=== PATIENT | male | born 1990 | race American Indian/Alaskan Native ===

== ENCOUNTER 2016-11-22 22:54 | Inpatient (IN) | payer MEDICAID, OTHER ==
[2016-11-22] MEDS ORDERED: Sodium Chloride 0.9% 1,000 ML IV STA (23:27)
[2016-11-22] MEDS ORDERED: Insulin Regular 100 units/ml SC STA (23:27)
--- NOTE | 2016-11-22 23:47 | ED PDOC ---
Hyperglycemia/Hypoglycemia Time Seen by Provider: 11/22/16 23:16 Chief Complaint (Nursing): High Blood Sugar Chief Complaint (Provider): leg cramps History Per: Patient : The patient does not have any of the infectious symptoms listed except for those marked. Additional Complaint(s): pt w/ hx uncontrolled NIDDM c/o intermittant leg cramps for several weeks. 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 states he has not taken his insulin in one month since he ran out. denies dizziness, cp, sob, palp, abd pain, n/v, numbness, weakness to extremities. Past Medical History Reviewed: Historical Data, Nursing Documentation, Vital Signs Vital Signs: Last Vital Signs Temp 98 F 11/22/16 23:03 Pulse 90 11/22/16 23:03 Resp 18 11/22/16 23:03 BP 163/100 H 11/22/16 23:03 Pulse Ox 100 11/22/16 23:03 - Medical History PMH: Asthma, Diabetes (insulin dependent, type 2), HTN, Migraine Denies: Chronic Kidney Disease - Surgical History Surgical History: Appendectomy - Family History Family History: States: Hypertension (Mother) - Social History Current smoker - smoking cessation education provided: No Alcohol: Social Drugs: Denies - Home Medications Home Medications: Ambulatory Orders Medication Instructions Recorded Albuterol 0.083% [Albuterol 0.083% 1 inh PO Q4 PRN 11/23/16 Inhal Catina (2.5 mg/3 ml) UD] Albuterol Sulfate [Proair Hfa] 2 inh PO HS 11/23/16 Insulin Aspart [Novolog FLEXPEN] 15 units SC DAILY 11/23/16 Insulin Glargine,Hum.rec.anlog 14 units SC HS 11/23/16 [Toujeo Solostar] Lisinopril [Zestril] 40 mg PO DAILY 11/23/16 - Allergies Allergies/Adverse Reactions: Allergies Allergy/AdvReac Type Severity Reaction Status Date / Time No Known Allergies Allergy Verified 07/29/16 17:58 Review of Systems ROS Statement: Except As Marked, All Systems Reviewed And Found Negative Musculoskeletal: Positive for: Leg Pain Physical Exam - Reviewed Nursing Documentation Reviewed: Yes Vital Signs Reviewed: Yes - Physical Exam Appears: Positive for: Well, Non-toxic, No Acute Distress Skin: Positive for: Normal Color, Warm, DRY ENT: Positive for: Other (mucous membranes dry) Neck: Positive for: Normal, Painless ROM Cardiovascular/Chest: Positive for: Regular Rate, Rhythm Respiratory: Positive for: CNT, Normal Breath Sounds Gastrointestinal/Abdominal: Positive for: Normal Exam, Bowel Sounds, Soft. Negative for: Tenderness Extremity: Positive for: Normal ROM. Negative for: Tenderness, Pedal Edema, Swelling Neurologic/Psych: Positive for: Alert, Oriented. Negative for: Motor/Sensory Deficits - Laboratory Results Result Diagrams: 11/22/16 23:40 11/22/16 23:40 - ECG O2 Sat by Pulse Oximetry: 100 Medical Decision Making Medical Decision Making: EKG nsr. labs reveal elevated BS and CK. BS normalizing with fluids. will admit for continued hydration and observation. hospitalist aware. Disposition - Clinical Impression Clinical Impression: Hyperglycemia, Rhabdomyolysis - Patient ED Disposition Is Patient to be Admitted: Yes - Disposition Referrals: Alexis Morris MD [Primary Care Provider] - Disposition Time: 01:59 Condition: STABLE - Pt Status Changed To: Hospital Disposition Of: Inpatient - Admit Certification Admit to Inpatient:: After my assessment, the patient will require hospitalization for at least two midnights. This is because of the severity of symptoms shown, intensity of services needed, and/or the medical risk in this patient being treated as an outpatient.
[2016-11-22 23:57] LABS: ALB/GLOB RATIO 1.5 (1.0-2.1); ALKALINE PHOSPHATASE 172 U/L (38-126); ALT/SGPT 52 U/L (21-72); AST/SGOT 58 U/L (17-59); BASO # 0.1 K/uL (0.0-0.2); BASO % 0.7 % (0.0-2.0); BILIRUBIN,TOTAL 0.7 mg/dl (0.2-1.3); BLOOD UREA NITROGEN 22 mg/dl (9-20); CALCIUM 9.7 mg/dL (8.4-10.2); CARBON DIOXIDE 22 mmol/L (22-30); CHLORIDE 100 mmol/L (98-107); EOS # 0.2 K/uL (0.0-0.7); EOS % 1.3 % (0.0-4.0); GFR AFRICAN-AMERICAN > 60; HEMATOCRIT 49.6 % (35.0-51.0); LYMPH # 2.7 K/uL (1.0-4.3); LYMPH % 20.4 % (20.0-40.0); MAGNESIUM 1.8 MG/DL (1.6-2.3); MEAN CELL VOLUME 80.3 fl (80.0-94.0); MEAN CORPUSCULAR HEMOGLOBIN 26.8 pg (27.0-31.0); MEAN CORPUSCULAR HGB CONC 33.3 g/dL (33.0-37.0); MEAN PLATELET VOLUME 10.8 fl (7.2-11.7); MONO # 0.9 K/uL (0.0-0.8); NEUT # 9.4 K/uL (1.8-7.0); NEUT % 70.6 % (50.0-75.0); NRBC % 0.1 % (0.0-0.0); PHOSPHOROUS 3.8 mg/dl (2.5-4.5); POTASSIUM 4.5 MMOL/L (3.6-5.0); RED CELL DISTRIBUTION WIDTH 12.9 % (11.5-14.5); SODIUM 135 mmol/l (132-148); TOTAL PROTEIN 8.1 G/DL (6.3-8.2); WHITE BLOOD COUNT 13.2 K/uL (4.8-10.8)
[2016-11-23 00:05] LABS: GLUCOSE,RANDOM 473 mg/dL (75-110)
[2016-11-23 00:20] LABS: VENOUS BLOOD GAS BASE EXCESS 0.4 mmol/L (0.0-2.0); VENOUS BLOOD GAS PCO2 55 mmHg (40-60); VENOUS BLOOD PH 7.31 (7.32-7.43)
[2016-11-23 00:32] LABS: RBC URINE 2 /hpf (0-3); URINE BILIRUBIN NEGATIVE (NEGATIVE); URINE BLOOD NEGATIVE (NEGATIVE); URINE COLOR STRAW (YELLOW); URINE GLUCOSE (UA) >=500 mg/dL (Normal); URINE KETONE TRACE mg/dL (NEGATIVE); URINE LEUKOCYTE ESTERASE NEG Leu/uL (Negative); URINE PROTEIN NEGATIVE (NEGATIVE); URINE UROBILINOGEN 0.2-1.0 mg/dL (0.2-1.0); WBC URINE < 1 /hpf (0-5)
--- NOTE | 2016-11-23 02:04 | CP.PCM.HP ---
History of Present Illness - History of Present Illness History of Present Illness: PCP: Alexis Morris Chief Complaint: Leg cramp and pain HPI: 25 years old male with hx of DM II insulin requiring, HTN and noncompliant with medication, comes with 5 days of Pains to both calf muscles. This began with cramping of both lower extremities from thighs down to ankles, followed by severe pain to both calf muscles with varying intensity, increasing with walking and not relieved with his home treatment. He also referred cramping at the right upper extremity. He has not taken his Insulin for one month. No fever , SOB, Chest Pain. Palpitations, No dysuria, diarrhea, vomiting nor coughing. No seizure nor hx of trauma. PMH: Asthma, DM II Insulin requiring, HTN, Migraine PSH: Appendectomy SH: Smokes Tobacco, occasional alcohol; Uses [employer]; Live with the family FH: Mother with HTN Allergies: NKDA Seasonal Allergies Medication: Lisinopril/ Toujeo( Insulin Glargine) Present on Admission - Present on Admission Any Indicators Present on Admission: Yes History of DVT/PE: No History of Uncontrolled Diabetes: Yes Urinary Catheter: No Decubitus Ulcer Present: No Review of Systems - Constitutional Constitutional: absent: Anorexia, Fever, Headache, Lethargy, Weakness - EENT Eyes: Requires Corrective Lenses. absent: Blurred Vision, Diplopia, Floaters, Sees Flashes Ears: absent: Decreased Hearing, Ear Discharge, Ear Pain, Tinnitus Nose/Mouth/Throat: absent: Epistaxis, Nasal Congestion, Nasal Discharge, Sinus Pain, Sinus Pressure - Cardiovascular Cardiovascular: absent: Chest Pain, Dyspnea, Edema - Respiratory Respiratory: absent: Cough, Dyspnea, Wheezing - Gastrointestinal Gastrointestinal: absent: Abdominal Pain, Constipation, Diarrhea, Nausea, Vomiting - Genitourinary Genitourinary: absent: Dysuria, Flank Pain, Hematuria, Freq UTI - Musculoskeletal Musculoskeletal: Muscle Cramps, Myalgias - Integumentary Integumentary: absent: Pruritus, Rash, Skin Ulcer, Sores, Striae, Swelling - Neurological Neurological: Paresthesias. absent: Confusion, Numbness, Focal Weakness, Headaches, Weakness Additional comments: Paresthesias of both lower extremities and the right upper extremity. - Psychiatric Psychiatric: absent: Anxiety, Depression, Panic Attacks - Endocrine Endocrine: Polydipsia, Polyuria. absent: Palpitations, Polyphagia - Hematologic/Lymphatic Hematologic: absent: Easy Bleeding, Easy Bruising Past Patient History - Past Medical History & Family History Past Medical History?: Yes - Past Social History Smoking Status: Light Smoker < 10 Cigarettes Daily Chewing Tobacco Use: No Cigar Use: No Alcohol: Social Drugs: Cannabis Home Situation {Lives}: With Family - CARDIAC Hx Hypertension: Yes - PULMONARY Hx Asthma: Yes - NEUROLOGICAL Hx Migraine: Yes - HEENT Hx HEENT Problems: No - RENAL Hx Chronic Kidney Disease: No - ENDOCRINE/METABOLIC Hx Diabetes Mellitus Type 2: Yes (non-compliant) - HEMATOLOGICAL/ONCOLOGICAL Hx Blood Disorders: No - INTEGUMENTARY Hx Dermatological Problems: No - MUSCULOSKELETAL/RHEUMATOLOGICAL Hx Musculoskeletal Disorders: No - GASTROINTESTINAL Hx Gastrointestinal Disorders: No - GENITOURINARY/GYNECOLOGICAL Hx Genitourinary Disorders: No - PSYCHIATRIC Hx Psychophysiologic Disorder: No Hx Substance Use: Yes (OCCASIONAL) - SURGICAL HISTORY Hx Appendectomy: Yes - ANESTHESIA Hx Anesthesia: Yes Hx Anesthesia Reactions: No Meds Allergies/Adverse Reactions: Allergies Allergy/AdvReac Type Severity Reaction Status Date / Time No Known Allergies Allergy Verified 07/29/16 17:58 Physical Exam - Constitutional Appears: No Acute Distress - Head Exam Head Exam: ATRAUMATIC, NORMAL INSPECTION, NORMOCEPHALIC - Eye Exam Eye Exam: EOMI, Normal appearance Pupil Exam: NORMAL ACCOMODATION, PERRL - ENT Exam ENT Exam: Mucous Membranes Moist, Normal Exam, Normal External Ear Exam, Normal Oropharynx - Neck Exam Neck exam: Positive for: Full Rom, Normal Inspection. Negative for: Lymphadenopathy, Tenderness - Respiratory Exam Respiratory Exam: Clear to Auscultation Bilateral. absent: Rales, Rhonchi, Wheezes - Cardiovascular Exam Cardiovascular Exam: REGULAR RHYTHM, +S1, +S2. absent: Gallop, RRR - GI/Abdominal Exam GI & Abdominal Exam: Normal Bowel Sounds, Soft. absent: Organomegaly, Tenderness - Rectal Exam Rectal Exam: Deferred - Extremities Exam Extremities exam: Positive for: full ROM, normal inspection Additional comments: Pain to both calf muscles on palpation, No edema nor erythema at these sites. - Back Exam Back exam: NORMAL INSPECTION. absent: CVA tenderness (L), CVA tenderness (R) - Neurological Exam Neurological exam: Alert, CN II-XII Intact, Normal Gait, Oriented x3, Reflexes Normal - Psychiatric Exam Psychiatric exam: Normal Affect, Normal Mood - Skin Skin Exam: Dry, Intact, Normal Color, Warm Results - Vital Signs Recent Vital Signs: Last Vital Signs Temp 98 F 11/22/16 23:03 Pulse 90 11/22/16 23:03 Resp 18 11/22/16 23:03 BP 163/100 H 11/22/16 23:03 Pulse Ox 100 11/23/16 02:00 - Labs Result Diagrams: 11/22/16 23:40 11/22/16 23:40 Assessment & Plan - Assessment and Plan (Free Text) Assessment: #. Myalgia with Rhabdomyolysis #. DM II with Hyperglycemia #. Dehydration #. Leukocytosis #.HTN # Asthma Plan: 25 years old male with hx of DM II insulin requiring, HTN and noncompliant with medication, comes with 5 days of Pains to both calf muscles and upper extremity This began with cramping of both lower extremities from thighs down to ankles, followed by severe pain to both calf muscles with varying intensity, increasing with walking and not relieved with his home treatment. He also referred cramping at the right upper extremity. #. Myalgia with Rhabdomyolysis - IV Fluid NS @ 200Mls/hr - follow CK/TSH/Phosphorous - Tylenol for pain #. DM II with Hyperglycemia - Diabetic Diet -Levemir 14 units HS - Aspart Insulin sliding scale according to accucheci - HbA1c #. Dehydration - IV fluids NS at 200Mls/Hr - follow renal labs #. Leukocytosis reactive - Follow WBC #.HTN uncontrolled - Lisinopril # Asthma stable - PRN Duoneb #. DVT Prophylaxis with lovenox #. code Status: Full - Date & Time Date: 11/23/16 Time: 02:04
[2016-11-23] MEDS: Sodium Chloride 0.9% 1,000 ML IV SCH ×5 (03:56→21:21)
[2016-11-23 07:32] LABS: BASO # 0.1 K/uL (0.0-0.2); EOS # 0.2 K/uL (0.0-0.7); EOS % 1.9 % (0.0-4.0); HEMATOCRIT 41.4 % (35.0-51.0); LYMPH # 2.6 K/uL (1.0-4.3); LYMPH % 28.8 % (20.0-40.0); MEAN CELL VOLUME 79.2 fl (80.0-94.0); MEAN CORPUSCULAR HGB CONC 34.2 g/dL (33.0-37.0); MEAN PLATELET VOLUME 10.6 fl (7.2-11.7); MONO # 0.8 K/uL (0.0-0.8); MONO % 8.5 % (0.0-10.0); NEUT # 5.5 K/uL (1.8-7.0); NEUT % 59.8 % (50.0-75.0); NRBC % 0.1 % (0.0-0.0); RED CELL DISTRIBUTION WIDTH 12.6 % (11.5-14.5); WHITE BLOOD COUNT 9.1 K/uL (4.8-10.8)
[2016-11-23 07:47] LABS: BLOOD UREA NITROGEN 16 mg/dl (9-20); CALCIUM 8.5 mg/dL (8.4-10.2); CARBON DIOXIDE 28 mmol/L (22-30); CHLORIDE 107 mmol/L (98-107); GFR AFRICAN-AMERICAN > 60; GLUCOSE,RANDOM 143 mg/dL (75-110); POTASSIUM 3.4 MMOL/L (3.6-5.0); SODIUM 142 mmol/l (132-148)
[2016-11-23] MEDS: Insulin Lispro (humaLOG) 100 Units/ml Inj SC SCH ×4 (07:54→21:33)
[2016-11-23 08:06] LABS: THYROID STIMULATING HORMONE 1.24 mIU/ML (0.46-4.68)
[2016-11-23 08:15] LABS: PHOSPHOROUS 3.2 mg/dl (2.5-4.5)
[2016-11-23] MEDS: Enoxaparin 40 mg Syringe SC SCH (12:26)
--- NOTE | 2016-11-23 19:12 | CARD ---
APPROVED REPORT EKG Measurement Heart [id number] ID [id number] <Conclusion> Normal sinus rhythm with sinus arrhythmia Normal ECG
[2016-11-23] MEDS ORDERED: Potassium Chloride 20 mEq ER Tab PO ONE (19:41)
[2016-11-23] MEDS ORDERED: Insulin Detemir 100 Units/ml Inj SC SCH (22:00)
[2016-11-24 00:24] VITALS: O2SAT 99
[2016-11-24 07:41] VITALS: BP 149/90; PULSE 85; RESP 16; TEMP 97.7
[2016-11-24 08:02] LABS: BLOOD UREA NITROGEN 10 mg/dl (9-20); CALCIUM 8.6 mg/dL (8.4-10.2); CARBON DIOXIDE 26 mmol/L (22-30); CHLORIDE 107 mmol/L (98-107); GFR AFRICAN-AMERICAN > 60; GLUCOSE,RANDOM 149 mg/dL (75-110); POTASSIUM 3.9 MMOL/L (3.6-5.0); SODIUM 140 mmol/l (132-148)
[2016-11-24] MEDS: Insulin Lispro (humaLOG) 100 Units/ml Inj SC SCH ×2 (08:20→12:58)
[2016-11-24] MEDS: Enoxaparin 40 mg Syringe SC SCH (09:55)
--- NOTE | 2016-11-24 11:56 | CP.PCM.DIS ---
Provider - Provider Date of Admission: 11/23/16 00:58 Attending physician: Arturo Cordova Primary care physician: Alexis Morris MD Time Spent in preparation of Discharge (in minutes): 30 Diagnosis - Discharge Diagnosis (1) Rhabdomyolysis Status: Acute Comment: continue liberal intake of fluid (2) DM2 (diabetes mellitus, type 2) Status: Chronic Comment: BS relatively controlled. Insulin Glargine 14 units SC HS. Insulin Aspart 15 units SC daily (3) Hypertension Status: Chronic Comment: BP controlled. continue Lisinopril 40mg PO daily Hospital Course - Lab Results Lab Results: Most Recent Lab Values WBC 9.1 K/uL (4.8-10.8) 11/23/16 07:00 RBC 5.22 Mil/uL (4.40-5.90) 11/23/16 07:00 Hgb 14.1 g/dL (12.0-18.0) D 11/23/16 07:00 Hct 41.4 % (35.0-51.0) 11/23/16 07:00 MCV 79.2 fl (80.0-94.0) L 11/23/16 07:00 MCH 27.0 pg (27.0-31.0) 11/23/16 07:00 MCHC 34.2 g/dL (33.0-37.0) 11/23/16 07:00 RDW 12.6 % (11.5-14.5) 11/23/16 07:00 Plt Count 100 K/uL (130-400) L 11/23/16 07:00 MPV 10.6 fl (7.2-11.7) 11/23/16 07:00 Neut % (Auto) 59.8 % (50.0-75.0) 11/23/16 07:00 Lymph % (Auto) 28.8 % (20.0-40.0) 11/23/16 07:00 Bryan % (Auto) 8.5 % (0.0-10.0) 11/23/16 07:00 Eos % (Auto) 1.9 % (0.0-4.0) 11/23/16 07:00 Baso % (Auto) 1.0 % (0.0-2.0) 11/23/16 07:00 Neut # 5.5 K/uL (1.8-7.0) 11/23/16 07:00 Lymph # 2.6 K/uL (1.0-4.3) 11/23/16 07:00 Bryan # 0.8 K/uL (0.0-0.8) 11/23/16 07:00 Eos # 0.2 K/uL (0.0-0.7) 11/23/16 07:00 Baso # 0.1 K/uL (0.0-0.2) 11/23/16 07:00 ESR 2 mm/hr (0-15) 11/23/16 07:00 pO2 31 mm/Hg (30-55) 11/22/16 00:10 VBG pH 7.31 (7.32-7.43) L 11/22/16 00:10 VBG pCO2 55 mmHg (40-60) 11/22/16 00:10 VBG HCO3 24.0 mmol/L 11/22/16 00:10 VBG O2 Sat (Calc) 58.5 % (40-65) 11/22/16 00:10 VBG Base Excess 0.4 mmol/L (0.0-2.0) 11/22/16 00:10 Sodium 140 mmol/l (132-148) 11/24/16 06:30 Potassium 3.9 MMOL/L (3.6-5.0) 11/24/16 06:30 Chloride 107 mmol/L (98-107) 11/24/16 06:30 Carbon Dioxide 26 mmol/L (22-30) 11/24/16 06:30 Anion Gap 10 (10-20) 11/24/16 06:30 BUN 10 mg/dl (9-20) 11/24/16 06:30 Creatinine 0.9 mg/dL (0.8-1.5) 11/24/16 06:30 Est GFR ( Amer) > 60 11/24/16 06:30 Est GFR (Non-Af Amer) > 60 11/24/16 06:30 POC Glucose (mg/dL) 284 mg/dL (65-110) H 11/24/16 10:49 Random Glucose 149 mg/dL (75-110) H 11/24/16 06:30 Calcium 8.6 mg/dL (8.4-10.2) 11/24/16 06:30 Phosphorus 3.2 mg/dl (2.5-4.5) 11/23/16 07:00 Magnesium 1.8 MG/DL (1.6-2.3) 11/22/16 23:40 Total Bilirubin 0.7 mg/dl (0.2-1.3) 11/22/16 23:40 AST 58 U/L (17-59) 11/22/16 23:40 ALT 52 U/L (21-72) 11/22/16 23:40 Alkaline Phosphatase 172 U/L (38-126) H D 11/22/16 23:40 Total Creatine Kinase 1122 U/L (55-170) H 11/24/16 06:30 Troponin I < 0.0120 ng/mL (0.00-0.120) 11/22/16 23:40 Total Protein 8.1 G/DL (6.3-8.2) 11/22/16 23:40 Albumin 4.8 g/dL (3.5-5.0) 11/22/16 23:40 Globulin 3.3 gm/dL (2.2-3.9) 11/22/16 23:40 Albumin/Globulin Ratio 1.5 (1.0-2.1) 11/22/16 23:40 TSH 3rd Generation 1.24 mIU/ML (0.46-4.68) 11/23/16 07:00 Urine Color Straw (YELLOW) 11/23/16 00:26 Urine Clarity Clear (Clear) 11/23/16 00:26 Urine pH 6.0 (5.0-8.0) 11/23/16 00:26 Ur Specific [place] 1.026 (1.003-1.030) 11/23/16 00:26 Urine Protein Negative mg/dL (NEGATIVE) 11/23/16 00:26 Urine Glucose (UA) >=500 mg/dL (Normal) 11/23/16 00:26 Urine Ketones Trace mg/dL (NEGATIVE) 11/23/16 00:26 Urine Blood Negative (NEGATIVE) 11/23/16 00:26 Urine Nitrate Negative (NEGATIVE) 11/23/16 00:26 Urine Bilirubin Negative (NEGATIVE) 11/23/16 00:26 Urine Urobilinogen 0.2-1.0 mg/dL (0.2-1.0) 11/23/16 00:26 Ur Leukocyte Esterase Neg Tom/uL (Negative) 11/23/16 00:26 Urine RBC (Auto) 2 /hpf (0-3) 11/23/16 00:26 Urine Microscopic WBC < 1 /hpf (0-5) 11/23/16 00:26 Urine Opiates Screen Negative (NEGATIVE) 11/23/16 09:17 Urine Methadone Screen Negative (NEGATIVE) 11/23/16 09:17 Ur Barbiturates Screen Negative (NEGATIVE) 11/23/16 09:17 Ur Phencyclidine Scrn Negative (NEGATIVE) 11/23/16 09:17 Ur Amphetamines Screen Negative (NEGATIVE) 11/23/16 09:17 U Benzodiazepines Scrn Negative (NEGATIVE) 11/23/16 09:17 U Oth Cocaine Metabols Negative (NEGATIVE) 11/23/16 09:17 U Cannabinoids Screen Positive (NEGATIVE) H 11/23/16 09:17 - Hospital Course Hospital Course: 25 yo male with history of DM2 and HTN came in with complaint of muscle pains on both lower extremities. Work ups showed rhabdomyolysis with CPK at 4600. Pt was hydrated and was relieved from myalgia the next day with CPK dropping to 2773. His renal function also improved with BUN coming down from 22 to 16. On the 3rd day his CPK further dropped to 1122. Patient was discharged in stable and improved condition. He was advised to continue liberal intake of fluid. Discharge Exam - Head Exam Head Exam: ATRAUMATIC, NORMAL INSPECTION, NORMOCEPHALIC - Eye Exam Eye Exam: absent: Scleral icterus - ENT Exam ENT Exam: Mucous Membranes Moist - Respiratory Exam Respiratory Exam: NORMAL BREATHING PATTERN. absent: Wheezes, Respiratory Distress - Cardiovascular Exam Cardiovascular Exam: REGULAR RHYTHM, +S1, +S2 - GI/Abdominal Exam GI & Abdominal Exam: Soft. absent: Tenderness - Rectal Exam Rectal Exam: Deferred - Extremities Exam Extremities exam: normal inspection - Neurological Exam Neurological exam: Alert, Oriented x3 - Psychiatric Exam Psychiatric exam: Normal Affect - Skin Skin Exam: Dry, Intact Discharge Plan - Follow Up Plan Condition: STABLE Disposition: HOME/ ROUTINE Instructions: Diabetic Hyperglycemia (DC) Additional Instructions: Follow up 1 week with PMD. Referrals: Alexis Morris MD [Primary Care Provider] -
== END 2016-11-24 13:35 | disposition home or self-care (01) | DRG 248 ==
LOC: H.ER 22:54 → H.ERHOLD 11-23 00:58 → H.MEDSURG1 11-23 03:01
PROVIDERS: ADMIT Internal Medicine; ATTEND Internal Medicine
DX: M62.82 Rhabdomyolysis (principal); E11.65 Type 2 diabetes mellitus with hyperglycemia; I10 Essential (primary) hypertension; E86.0 Dehydration; J45.909 Unspecified asthma, uncomplicated; D72.829 Elevated white blood cell count, unspecified; Z91.14 Patient's other noncompliance with medication regimen; Z79.4 Long term (current) use of insulin

== ENCOUNTER 2017-09-13 12:19 | Inpatient (IN) | payer MEDICAID, OTHER ==
[2017-09-13] MEDS ORDERED: Sodium Chloride 0.9% 1,000 ML IV STA ×2 (12:48→15:37)
--- NOTE | 2017-09-13 12:56 | ED PDOC ---
Hyperglycemia/Hypoglycemia Time Seen by Provider: 09/13/17 12:34 Chief Complaint (Nursing): High Blood Sugar History Per: Patient History/Exam Limitations: no limitations Onset/Duration Of Symptoms: Days (x few days) Current Symptoms Are (Timing): Still Present : The patient does not have any of the infectious symptoms listed except for those marked. Additional Complaint(s): Mr. Kaba is a 26 year old male, with a history of diabetes and HTN, who presents to the ED with polyuria and polydipsia x few days. Patient reports he has not taken his diabetic or anti-hypertensive medications for 1 month because insurance ran out. Reports mild headache, but denies vomiting, abdominal pain, dizziness. PMD: Alexis Morris Past Medical History Reviewed: Historical Data, Nursing Documentation, Vital Signs Vital Signs: Last Vital Signs Temp 98.3 F 09/13/17 12:28 Pulse 72 09/13/17 12:28 Resp 16 09/13/17 12:28 BP 157/93 H 09/13/17 12:28 Pulse Ox 99 09/13/17 12:28 - Medical History PMH: Asthma, Diabetes (insulin dependent, type 2), HTN, Migraine Denies: Chronic Kidney Disease - Surgical History Surgical History: Appendectomy - Family History Family History: States: Hypertension (Mother) - Home Medications Home Medications: Ambulatory Orders Medication Instructions Recorded Albuterol 0.083% [Albuterol 0.083% 1 inh PO Q4 PRN 11/23/16 Inhal Catina (2.5 mg/3 ml) UD] Albuterol Sulfate [Proair Hfa] 2 inh PO HS 11/23/16 Insulin Aspart [Novolog Flexpen] 15 units SC DAILY 11/23/16 Insulin Glargine,Hum.rec.anlog 14 units SC HS 11/23/16 [Toujeo Solostar] Lisinopril [Zestril] 40 mg PO DAILY 11/23/16 - Allergies Allergies/Adverse Reactions: Allergies Allergy/AdvReac Type Severity Reaction Status Date / Time No Known Allergies Allergy Verified 07/29/16 17:58 Review of Systems ROS Statement: Except As Marked, All Systems Reviewed And Found Negative Constitutional: Positive for: Other (Polydipsia) Gastrointestinal: Negative for: Vomiting, Abdominal Pain Genitourinary Male: Positive for: Other (Polyuria) Neurological: Positive for: Headache (Mild). Negative for: Dizziness Physical Exam - Reviewed Nursing Documentation Reviewed: Yes Vital Signs Reviewed: Yes - Physical Exam Appears: Positive for: Non-toxic Head Exam: Positive for: ATRAUMATIC, NORMAL INSPECTION, NORMOCEPHALIC Skin: Positive for: Normal Color, Warm, Dry Eye Exam: Positive for: Normal appearance, EOMI, PERRL ENT: Positive for: Other (Mucous membrane is dry) Neck: Positive for: Normal Cardiovascular/Chest: Positive for: Regular Rate, Rhythm Respiratory: Positive for: Normal Breath Sounds (Lungs clear). Negative for: Respiratory Distress Gastrointestinal/Abdominal: Positive for: Normal Exam Back: Positive for: Normal Inspection Extremity: Positive for: Normal ROM. Negative for: Deformity Neurologic/Psych: Positive for: Alert, Oriented (x 3). Negative for: Motor/ Sensory Deficits - Laboratory Results Result Diagrams: 09/13/17 14:59 09/13/17 14:59 - ECG O2 Sat by Pulse Oximetry: 99 (RA) Pulse Ox Interpretation: Normal Medical Decision Making Medical Decision Making: Time: 12:48 Plan: - VBG Shock Panel - CMP - ED Urine Dipstick - CBC - Sodium Chloride 0.9% 1,000 ml IV 1,000 mls/hr Scribe Attestation: Documented by Te Leonard, acting as a scribe for Jose Moraes MD. Provider Scribe Attestation: All medical record entries made by the Scribe were at my direction and personally dictated by me. I have reviewed the chart and agree that the record accurately reflects my personal performance of the history, physical exam, medical decision making, and the department course for this patient. I have also personally directed, reviewed, and agree with the discharge instructions and disposition. Disposition - Clinical Impression Clinical Impression: DKA (diabetic ketoacidoses) - Patient ED Disposition Is Patient to be Admitted: Yes - Disposition Disposition Time: 15:35 Condition: GUARDED Forms: [employer] (Romanian) - Pt Status Changed To: Hospital Disposition Of: Inpatient - Admit Certification Admit to Inpatient:: After my assessment, the patient will require hospitalization for at least two midnights. This is because of the severity of symptoms shown, intensity of services needed, and/or the medical risk in this patient being treated as an outpatient. - POA Present On Arrival: None
[2017-09-13 15:04] LABS: BASO # 0.1 K/uL (0.0-0.2); EOS # 0.1 K/uL (0.0-0.7); EOS % 1.1 % (0.0-4.0); HEMOGLOBIN 16.2 g/dL (12.0-18.0); LYMPH # 1.6 K/uL (1.0-4.3); LYMPH % 19.7 % (20.0-40.0); MEAN CELL VOLUME 79.9 fl (80.0-94.0); MEAN CORPUSCULAR HGB CONC 33.7 g/dL (33.0-37.0); MEAN PLATELET VOLUME 10.5 fl (7.2-11.7); MONO # 0.6 K/uL (0.0-0.8); MONO % 7.5 % (0.0-10.0); NEUT # 5.6 K/uL (1.8-7.0); NEUT % 70.7 % (50.0-75.0); NRBC % 0.6 % (0.0-0.0); RBC 6.02 Mil/uL (4.40-5.90)
[2017-09-13 15:06] LABS: VENOUS BLOOD GAS BASE EXCESS -11.7 mmol/L (0.0-2.0); VENOUS BLOOD GAS PCO2 80 mmHg (40-60); VENOUS BLOOD GAS PO2 40 mm/Hg (30-55); VENOUS BLOOD PH 7.02 (7.32-7.43)
[2017-09-13 15:25] LABS: ALB/GLOB RATIO 1.4 (1.0-2.1); ALBUMIN 4.7 g/dL (3.5-5.0); ALT/SGPT 32 U/L (21-72); AST/SGOT 16 U/L (17-59); BLOOD UREA NITROGEN 16 mg/dl (9-20); CALCIUM 10.1 mg/dL (8.4-10.2); GFR AFRICAN-AMERICAN > 60; GFR NON-AFRICAN AMERICAN > 60
[2017-09-13] MEDS ORDERED: Glucagon Recombinant 1 mg Inj IM PRN (15:28)
[2017-09-13] MEDS ORDERED: Dextrose 50% SYRINGE Inj (50 ml) IV PRN (15:28)
--- NOTE | 2017-09-13 16:50 | CP.PCM.HP ---
History of Present Illness - History of Present Illness History of Present Illness: 26M PMH Uncontrolled DMII, HTN, noncompliant with medications for approximately 2 months due to expiration of insurance 2/2 recent unemployment and insufficient funds. Patient states blood glucose was over 400 two weeks ago, however did not want to come to the hospital at that time. In ED, BG 460, AG 25 , received 2 liters NS, initiated on insulin drip, accuchecks q1, BMP q4 hours. Patient mentating well, feels well, clinically stable, HD stable. Admit to ICU for close monitoring. ROS: per HPI all other systems reviewed and negative PMD: Dr. Morris PMSH: Uncontrolled DMII, HTN FH: DM SH: marijuana use daily (friends), social ETOH, denies tobacco Present on Admission - Present on Admission Any Indicators Present on Admission: No Past Patient History - Past Medical History & Family History Past Medical History?: Yes - Past Social History Smoking Status: Current Some Days Smoker - CARDIAC Hx Hypertension: Yes - PULMONARY Hx Asthma: Yes - NEUROLOGICAL Hx Migraine: Yes - HEENT Hx HEENT Problems: No - RENAL Hx Chronic Kidney Disease: No - ENDOCRINE/METABOLIC Hx Endocrine Disorders: Yes Hx Diabetes Mellitus Type 2: Yes (non-compliant) - HEMATOLOGICAL/ONCOLOGICAL Hx Blood Disorders: No - INTEGUMENTARY Hx Dermatological Problems: No - MUSCULOSKELETAL/RHEUMATOLOGICAL Hx Musculoskeletal Disorders: Yes Hx Falls: Yes - GASTROINTESTINAL Hx Gastrointestinal Disorders: No - GENITOURINARY/GYNECOLOGICAL Hx Genitourinary Disorders: No - PSYCHIATRIC Hx Psychophysiologic Disorder: Yes Hx Substance Use: Yes (OCCASIONAL) - SURGICAL HISTORY Hx Appendectomy: Yes - ANESTHESIA Hx Anesthesia: Yes Hx Anesthesia Reactions: No Meds Allergies/Adverse Reactions: Allergies Allergy/AdvReac Type Severity Reaction Status Date / Time No Known Allergies Allergy Verified 07/29/16 17:58 Physical Exam - Constitutional Appears: Non-toxic, No Acute Distress - Head Exam Head Exam: ATRAUMATIC, NORMOCEPHALIC - Eye Exam Eye Exam: EOMI, Normal appearance, PERRL Pupil Exam: NORMAL ACCOMODATION - ENT Exam ENT Exam: Mucous Membranes Dry, Normal Exam, Normal Oropharynx - Neck Exam Neck exam: Positive for: Full Rom. Negative for: Meningismus, Tenderness - Respiratory Exam Respiratory Exam: Clear to Auscultation Bilateral, NORMAL BREATHING PATTERN - Cardiovascular Exam Cardiovascular Exam: RRR, +S1, +S2 - GI/Abdominal Exam GI & Abdominal Exam: Normal Bowel Sounds, Soft. absent: Organomegaly, Rigid, Tenderness - Extremities Exam Extremities exam: Positive for: normal inspection. Negative for: pedal edema - Back Exam Back exam: absent: CVA tenderness (L), CVA tenderness (R) - Neurological Exam Neurological exam: Alert, Normal Gait, Oriented x3 - Psychiatric Exam Psychiatric exam: Normal Affect, Normal Mood - Skin Skin Exam: Dry, Normal Color, Warm Results - Vital Signs Recent Vital Signs: Last Vital Signs Temp 98.3 F 09/13/17 12:28 Pulse 72 09/13/17 12:28 Resp 19 09/13/17 16:10 BP 157/93 H 09/13/17 12:28 Pulse Ox 100 09/13/17 16:10 - Labs Result Diagrams: 09/13/17 14:59 09/13/17 14:59 Labs: Laboratory Results - last 24 hr 09/13/17 09/13/17 09/13/17 14:59 14:59 15:00 WBC 8.0 RBC 6.02 H Hgb 16.2 D Hct 48.1 MCV 79.9 L MCH 27.0 MCHC 33.7 RDW 13.0 Plt Count 141 MPV 10.5 Neut % (Auto) 70.7 Lymph % (Auto) 19.7 L [place] % (Auto) 7.5 Eos % (Auto) 1.1 Baso % (Auto) 1.0 Neut # (Auto) 5.6 Lymph # (Auto) 1.6 [place] # (Auto) 0.6 Eos # (Auto) 0.1 Baso # (Auto) 0.1 pO2 40 VBG pH 7.02 L* VBG pCO2 80 H* VBG HCO3 14.4 VBG Total CO2 23.2 VBG O2 Sat (Calc) 65.1 H VBG Base Excess -11.7 L Glucose 388 H Lactate 1.9 FiO2 21.0 Sodium 143 116.0 L* Potassium 4.0 Chloride 95 L 95.0 L Carbon Dioxide 27 Anion Gap 25 H BUN 16 Creatinine 1.1 Est GFR ( Amer) > 60 Est GFR (Non-Af Amer) > 60 POC Glucose (mg/dL) Random Glucose 460 H* D Calcium 10.1 Total Bilirubin 0.9 AST 16 L ALT 32 Alkaline Phosphatase 146 H Total Protein 8.0 Albumin 4.7 Globulin 3.3 Albumin/Globulin Ratio 1.4 09/13/17 15:35 WBC RBC Hgb Hct MCV MCH MCHC RDW Plt Count MPV Neut % (Auto) Lymph % (Auto) [place] % (Auto) Eos % (Auto) Baso % (Auto) Neut # (Auto) Lymph # (Auto) [place] # (Auto) Eos # (Auto) Baso # (Auto) pO2 VBG pH VBG pCO2 VBG HCO3 VBG Total CO2 VBG O2 Sat (Calc) VBG Base Excess Glucose Lactate FiO2 Sodium Potassium Chloride Carbon Dioxide Anion Gap BUN Creatinine Est GFR ( Amer) Est GFR (Non-Af Amer) POC Glucose (mg/dL) 333 H Random Glucose Calcium Total Bilirubin AST ALT Alkaline Phosphatase Total Protein Albumin Globulin Albumin/Globulin Ratio Assessment & Plan - Assessment and Plan (Free Text) Plan: 26M PMH Uncontrolled DMII, HTN, noncompliant with medications for approximately 2 months due to expiration of insurance 2/2 recent unemployment and insufficient funds. Patient states blood glucose was over 400 two weeks ago, however did not want to come to the hospital at that time. In ED, BG 460, AG 25 , received 2 liters NS, initiated on insulin drip, accuchecks q1, BMP q4 hours. Patient mentating well, feels well, clinically stable, HD stable. Admit to ICU for close monitoring. DKA - NPO - insulin drip - monitor Q1 accuchecks and Q4 BMP until bicarb/AG normalizes and transition fluids and insulin as appropriate - reinitiate PO antihyperglycemics when taking oral agents - monitor K carefully HTN - Hydralazine PRN - Transition back to home Amlodipine and Lisinopril when taking oral agents VTE ppx lovenox
[2017-09-13] MEDS ORDERED: Sodium Chloride 0.9% 1,000 ML IV SCH (17:00)
[2017-09-13 19:06] LABS: BLOOD UREA NITROGEN 13 mg/dl (9-20); CALCIUM 9.6 mg/dL (8.4-10.2); GFR AFRICAN-AMERICAN > 60; GFR NON-AFRICAN AMERICAN > 60
[2017-09-13] MEDS ORDERED: Insulin NPH Human 100 Units/ml Inj SC SCH (22:00)
[2017-09-13] MEDS: Sodium Chloride 0.45% 1,000 ML IV SCH (22:10)
[2017-09-13] MEDS: Insulin Regular 100 units/ml SC SCH (22:12)
[2017-09-13 23:51] VITALS: RESP 18
[2017-09-14] MEDS ORDERED: Albuterol HFA 90 mcg/actuation (8 g) IH PRN (00:13)
--- NOTE | 2017-09-14 02:51 | CON ---
ENDOCRINOLOGY CONSULT DATE: LOCATION: In room 430, ICU HISTORY OF PRESENT ILLNESS: This is a 26-year-old male with known history of type 2 insulin-requiring diabetes who actually went out of his insulin medications because of lack of medical insurance and current unemployment and has now been admitted with marked hyperglycemic accelerations, but actually not really in diabetic ketoacidosis as initially mentioned and is now being referred for diabetic evaluation and management. PAST MEDICAL HISTORY: History of type 2 insulin-requiring diabetes, previously on NovoLog given as 15 units twice daily with Lantus given as 14 units at bedtime, but he ran out of the aforementioned about 2 months ago, history of hypertension and dyslipidemia, and history of bronchial asthma. FAMILY HISTORY: Positive for diabetes and hypertension. SOCIAL HISTORY: The patient admits to smoking cigarettes and also to almost daily use of marijuana and no other known substance use. REVIEW OF SYSTEMS: As mentioned above, admits to generalized body weakness with increasing bouts of dizziness and lightheadedness, worse on the day of admission. No chest pains or palpitations. His oral intake has been variable with dyspepsia, nausea, and occasional vomiting episodes. Also admits to marked polyuria, nocturia, and polydipsia. PHYSICAL EXAMINATION: GENERAL: This is an average-built male in no apparent distress. VITAL SIGNS: Blood pressure 140/80, pulse of 74 beats per minute and regular, temperature 98, respirations 20, height is 5 feet 8 inches, and weight is 175 pounds. HEENT: Head is normocephalic. Eyes; anicteric with pink conjunctivae. Funduscopy not possible at this time. Ears, nose, and throat otherwise normal. NECK: Supple. Thyroid gland is normal in size. No carotid bruits or any cervical adenopathy. CARDIOPULMONARY: Some adynamic precordium. S1 and S2 is rapid and regular. LUNGS: Clear to auscultation. ABDOMEN: Flat and soft with positive bowel sounds. EXTREMITIES: No peripheral edema. Pulses are +2 bilaterally. LABORATORY DATA: Initially, chemistries showed a BUN of 16, sodium 143, potassium 4.0, chloride 95, CO2 of 27, glucose 460, and creatinine 1.1. His glucose levels have ranged from 183 to 333 early this morning and the last glucose levels tonight are ranging from 192 to 200 mg/dL. ASSESSMENT: This is a 26-year-old male with uncontrolled and decompensated type 2 insulin-requiring diabetes presenting here with marked hyperglycemic accelerations, but really actually has no evidence of diabetic ketoacidosis as noted, really related to drug omission and lack of insulin therapy because of medical insurance constraints. PLAN OF MANAGEMENT: We will actually discontinue the insulin drip infusion at this time and switch him over to a more physiologic basal and bolus insulin drug combination as ordered and detailed orders have been given. We will start him right away on a combination of NPH given as 14 units at bedtime to start tonight. We will add regular insulin given as 8 units b.i.d. before breakfast and dinner to start tomorrow morning and we will modify the coverage scale to obviate hypoglycemia and detailed orders have been given. We will continue the vigorous IV hydration and switch him over from normal saline to half normal saline running at 100 mL/hour as ordered. Hemoglobin A1c, thyroid levels, and lipid panel and serial chemistries have been ordered for tomorrow and he can be transferred out to a regular floor accordingly. So, we will also reinforce diabetic education and dietary instructions at the time of this admission. Sada Silva MD
[2017-09-14 06:47] LABS: ALB/GLOB RATIO 1.4 (1.0-2.1); ALBUMIN 3.6 g/dL (3.5-5.0); ALT/SGPT 25 U/L (21-72); AST/SGOT 14 U/L (17-59); BLOOD UREA NITROGEN 11 mg/dl (9-20); CALCIUM 8.9 mg/dL (8.4-10.2); GFR AFRICAN-AMERICAN > 60; GFR NON-AFRICAN AMERICAN > 60; HDL CHOLESTEROL 44 MG/DL (30-70)
[2017-09-14 06:48] LABS: LDL CHOLESTEROL 64 mg/dL (0-129)
[2017-09-14] MEDS ORDERED: Insulin Regular 100 units/ml SC SCH (07:30)
[2017-09-14 08:03] VITALS: BP 124/75; PULSE 60; TEMP 97.7; O2SAT 99
[2017-09-14] MEDS: Insulin Regular 100 units/ml SC SCH ×2 (08:24→12:25)
--- NOTE | 2017-09-14 08:29 | PN ---
DATE: 09/13/2017 CRITICAL CARE PROGRESS NOTE LOCATION: The patient is in ER being admitted to ICU. REASON FOR CONSULTATION: A 26-year-old male presenting with polydipsia and polyuria. Blood sugar 460 with anion gap metabolic acidosis for further evaluation and treatment of DKA. PAST MEDICAL HISTORY: Diabetes mellitus type 2 and hypertension. PAST SURGICAL HISTORY: Appendicectomy. MEDICATIONS AT HOME: Albuterol inhalation 2 puffs q. 4 p.r.n., insulin glargine 14 units subcu at bedtime, lisinopril 40 mg daily, and simvastatin 10 mg daily. ALLERGY: NONE DOCUMENTED. FAMILY HISTORY: Noncontributory. SOCIAL HISTORY: Nonsmoker, no EtOH use. PHYSICAL EXAMINATION: GENERAL: Young well-built male, oriented to name, place,and time. VITAL SIGNS: Temperature 98.3, heart rate 72, blood pressure 157/93, pulse oxymetry 100%. Intake and output not documented. HEAD, EYES, EARS, NOSE AND THROAT: Pupils reactive. Conjunctivae pink. Sclerae white. Oral mucosa dry. HEART: Rhythm regular. S1, S2 normal. ABDOMEN: Bowel sounds present, soft. EXTREMITIES: No clubbing, cyanosis or edema. NEURO: Nonfocal. LABORATORY DATA: WBC 8, hemoglobin 16.2, hematocrit 48.1, platelet count 141, neutrophils_, lymphocytes 19.7, and monocytes 7.5. ABG, pH 7.02, pCO2 80, bicarb 14.4, pO2 40, and lactate 1.9. SMA-7: Sodium 143, potassium 4, chloride 95, CO2 27, blood urea nitrogen 16, creatinine 1.1, and random glucose 460, calcium 10.1. Total bilirubin 0.9, AST 16, ALT 32, alkaline phosphatase 166, total protein 8, albumin 4.7. IMPRESSION AND PLAN: A 26-year-old male with history of diabetes mellitus type 2, hypertension, and asthma, noncompliant with medications, admitted with hyperglycemia with high anion gap metabolic acidosis. Continue IV hydration and insulin. Change fluid to D5W when sugar is less than 250, resume maintenance medications once acidosis cleared off. No clear evidence of infection. Continue gastrointestinal and deep venous thrombosis prophylaxis. Lyle Blevins MD MTDTomer
[2017-09-14] MEDS: Sodium Chloride 0.45% 1,000 ML IV SCH (08:35)
[2017-09-14] MEDS ORDERED: Enoxaparin 40 mg Syringe SC SCH (09:00)
--- NOTE | 2017-09-14 15:43 | CP.PCM.DIS ---
Provider - Provider Date of Admission: 09/13/17 15:34 Attending physician: Marium Loomis DO Primary care physician: Dr. Morris Consults: Endo consult Time Spent in preparation of Discharge (in minutes): 15 Hospital Course - Lab Results Lab Results: Most Recent Lab Values WBC 8.0 K/uL (4.8-10.8) 09/13/17 14:59 RBC 6.02 Mil/uL (4.40-5.90) H 09/13/17 14:59 Hgb 16.2 g/dL (12.0-18.0) D 09/13/17 14:59 Hct 48.1 % (35.0-51.0) 09/13/17 14:59 MCV 79.9 fl (80.0-94.0) L 09/13/17 14:59 MCH 27.0 pg (27.0-31.0) 09/13/17 14:59 MCHC 33.7 g/dL (33.0-37.0) 09/13/17 14:59 RDW 13.0 % (11.5-14.5) 09/13/17 14:59 Plt Count 141 K/uL (130-400) 09/13/17 14:59 MPV 10.5 fl (7.2-11.7) 09/13/17 14:59 Neut % (Auto) 70.7 % (50.0-75.0) 09/13/17 14:59 Lymph % (Auto) 19.7 % (20.0-40.0) L 09/13/17 14:59 [place] % (Auto) 7.5 % (0.0-10.0) 09/13/17 14:59 Eos % (Auto) 1.1 % (0.0-4.0) 09/13/17 14:59 Baso % (Auto) 1.0 % (0.0-2.0) 09/13/17 14:59 Neut # (Auto) 5.6 K/uL (1.8-7.0) 09/13/17 14:59 Lymph # (Auto) 1.6 K/uL (1.0-4.3) 09/13/17 14:59 [place] # (Auto) 0.6 K/uL (0.0-0.8) 09/13/17 14:59 Eos # (Auto) 0.1 K/uL (0.0-0.7) 09/13/17 14:59 Baso # (Auto) 0.1 K/uL (0.0-0.2) 09/13/17 14:59 pO2 40 mm/Hg (30-55) 09/13/17 15:00 VBG pH 7.02 (7.32-7.43) L* 09/13/17 15:00 VBG pCO2 80 mmHg (40-60) H* 09/13/17 15:00 VBG HCO3 14.4 mmol/L 09/13/17 15:00 VBG Total CO2 23.2 mmol/L (22-28) 09/13/17 15:00 VBG O2 Sat (Calc) 65.1 % (40-65) H 09/13/17 15:00 VBG Base Excess -11.7 mmol/L (0.0-2.0) L 09/13/17 15:00 Sodium 116.0 mmol/L (132-148) L* 09/13/17 15:00 Chloride 95.0 mmol/L (98-107) L 09/13/17 15:00 Glucose 388 mg/dL (75-110) H 09/13/17 15:00 Lactate 1.9 mmol/L (0.7-2.1) 09/13/17 15:00 FiO2 21.0 % 09/13/17 15:00 Sodium 142 mmol/l (132-148) 09/14/17 05:15 Potassium 3.6 MMOL/L (3.6-5.0) 09/14/17 05:15 Chloride 101 mmol/L (98-107) 09/14/17 05:15 Carbon Dioxide 29 mmol/L (22-30) 09/14/17 05:15 Anion Gap 16 (10-20) 09/14/17 05:15 BUN 11 mg/dl (9-20) 09/14/17 05:15 Creatinine 1.0 mg/dl (0.8-1.5) 09/14/17 05:15 Est GFR ( Amer) > 60 09/14/17 05:15 Est GFR (Non-Af Amer) > 60 09/14/17 05:15 POC Glucose (mg/dL) 321 mg/dL (65-110) H 09/14/17 10:49 Random Glucose 203 mg/dL (75-110) H 09/14/17 05:15 Hemoglobin A1c 9.5 % (4.2-6.5) H 09/14/17 05:15 Calcium 8.9 mg/dL (8.4-10.2) 09/14/17 05:15 Total Bilirubin 0.8 mg/dl (0.2-1.3) 09/14/17 05:15 AST 14 U/L (17-59) L 09/14/17 05:15 ALT 25 U/L (21-72) 09/14/17 05:15 Alkaline Phosphatase 74 U/L (38-126) 09/14/17 05:15 Total Protein 6.2 G/DL (6.3-8.2) L 09/14/17 05:15 Albumin 3.6 g/dL (3.5-5.0) 09/14/17 05:15 Globulin 2.6 gm/dL (2.2-3.9) 09/14/17 05:15 Albumin/Globulin Ratio 1.4 (1.0-2.1) 09/14/17 05:15 Triglycerides 123 mg/DL (0-149) D 09/14/17 05:15 Cholesterol 150 mg/dL (0-199) 09/14/17 05:15 LDL Cholesterol Direct 64 mg/dL (0-129) 09/14/17 05:15 HDL Cholesterol 44 MG/DL (30-70) 09/14/17 05:15 TSH 3rd Generation 0.82 mIU/ML (0.46-4.68) 09/14/17 05:15 - Hospital Course Hospital Course: 26 y/o M with PMH Uncontrolled DMII, HTN, noncompliant with medications for approximately 2 months due to expiration of insurance and recent unemployment presented to hospital with uncontrolled BS .Initially was though to be in DKA so patient was admitted to ICU and started on IVF and insulin drip Endo consulted and recommended discontinuation of insulin drip and starting basal insulin since patient does not really has DKA . Clinically patient improved , BS better controlled HgA1c 9.[address] Silva.Will discharge patient home on more affordable insulin regiment Insulin N Follow up with PMD Dr. Morris or CFH Dx 1.Uncontrolled IDDM type II secondary to medication non compliance -- Hgb A1 c 9.5 start Insulin N on discharge 2.HTN controlled on home meds lisinopril Discharge Exam - Head Exam Head Exam: ATRAUMATIC, NORMAL INSPECTION, NORMOCEPHALIC - Eye Exam Eye Exam: EOMI, Normal appearance, PERRL Pupil Exam: NORMAL ACCOMODATION - ENT Exam ENT Exam: Mucous Membranes Moist, Normal Exam - Neck Exam Neck exam: Full Rom, Normal Inspection - Respiratory Exam Respiratory Exam: Clear to PA & Lateral, NORMAL BREATHING PATTERN. absent: Rales, Rhonchi, Wheezes - Cardiovascular Exam Cardiovascular Exam: REGULAR RHYTHM, RRR, +S1, +S2. absent: JVD - GI/Abdominal Exam GI & Abdominal Exam: Normal Bowel Sounds, Soft. absent: Distended, Guarding, Rebound, Tenderness - Rectal Exam Rectal Exam: Deferred - Extremities Exam Extremities exam: normal capillary refill, normal inspection, pedal pulses present - Back Exam Back exam: NORMAL INSPECTION - Neurological Exam Neurological exam: Alert, CN II-XII Intact, Oriented x3, Reflexes Normal - Psychiatric Exam Psychiatric exam: Normal Affect, Normal Mood - Skin Skin Exam: Intact, Normal Color, Warm Discharge Plan - Discharge Medications Prescriptions: Albuterol HFA [Ventolin HFA 90 mcg/actuation (8 g)] 2 puff IH Q4H PRN #1 inhaler PRN Reason: Shortness Of Breath Insulin Human NPH [Humulin N] 14 units SC HS #1 vial Insulin Human Regular [HumuLIN R] 8 units SC ACBD #1 vial Lisinopril [Zestril] 40 mg PO DAILY #30 tab Simvastatin 10 mg PO DAILY #30 tablet - Follow Up Plan Condition: STABLE Disposition: HOME/ ROUTINE Patient education suggested?: Yes Instructions: Diabetes and Diet Additional Instructions: follow up with primary and Dr. Sada Silva 7-10 days Referrals: [facility] [place] [facility] [Outside] Sada Silva MD [Medical Doctor] - Alexis Morris MD [Family Provider] -
--- NOTE | 2017-09-14 19:32 | PN ---
ENDOCRINOLOGY FOLLOWUP NOTE DATE: LOCATION: In room 654 SUBJECTIVE: This is a 26-year-old male with recent uncontrolled type 2 insulin-requiring diabetes presenting here with marked hyperglycemic accelerations and dehydration and received intensive insulin therapy with an insulin drip infusion and vigorous IV hydration as given. He has since then been taken off the insulin drip last night and switched over to a more affordable and conventional insulin since he has no medical insurance at this time. His glucose values today have ranged from 183 to 321 mg/dL. His latest chemistry showed a BUN of 11, sodium 142, potassium 3.6, chloride 101, CO2 of 29, glucose 203, and creatinine 1.0. His A1c is 9.5%. So, at this time, we would recommend the higher dosing of his regular insulin given as 12 units before breakfast and before dinner as ordered. We will also recommend NPH given as 20 units subcutaneously at bedtime daily as given. We will titrate incremental as indicated to optimize metabolic control. We will follow and advise accordingly. Sada Silva MD
== END 2017-09-14 13:04 | disposition home or self-care (01) | DRG 638 ==
LOC: H.ER 12:19 → H.ERHOLD 15:34 → H.ICU/CCU 17:55 → H.MEDSURG1 23:48
PROVIDERS: ADMIT Student in an Organized Health Care Education/Training Program; ATTEND Student in an Organized Health Care Education/Training Program
DX: E11.65 Type 2 diabetes mellitus with hyperglycemia (principal); E87.2 Acidosis; E78.5 Hyperlipidemia, unspecified; F17.210 Nicotine dependence, cigarettes, uncomplicated; I10 Essential (primary) hypertension; J45.909 Unspecified asthma, uncomplicated; Z79.4 Long term (current) use of insulin; Z91.14 Patient's other noncompliance with medication regimen; F12.90 Cannabis use, unspecified, uncomplicated; E86.0 Dehydration; G43.909 Migraine, unspecified, not intractable, without status migrainosus

== ENCOUNTER 2017-11-29 23:24 | Emergency (ER) | payer MEDICAID, OTHER ==
[2017-11-29 23:33] VITALS: RESP 18
[2017-11-29] MEDS ORDERED: Albuterol-Ipratrop 3 mg / 0.5 (3 ml) UD INH STA (23:51)
[2017-11-29] MEDS ORDERED: Magnesium Sulfate 2 gm/50 ml 2 GM/50 ML BAG IV STA (23:57)
[2017-11-30] MEDS ORDERED: Magnesium Sulfate 2 gm/50 ml 2 GM/50 ML BAG ONE (00:12)
[2017-11-30] MEDS ORDERED: Albuterol-Ipratrop 3 mg / 0.5 (3 ml) UD ONE (00:12)
--- NOTE | 2017-11-30 00:13 | ED PDOC ---
HPI: SOB/CHF/COPD Time Seen by Provider: 11/29/17 23:47 Chief Complaint (Nursing): Shortness Of Breath Chief Complaint (Provider): Shortness Of Breath, Wheezing History Per: Patient History/Exam Limitations: no limitations Onset/Duration Of Symptoms: Hrs (x24) Current Symptoms Are (Timing): Still Present Additional Complaint(s): 26 y/o male with a pmhx of diabetes (type I), asthma, and seasonal allergies, who presents to the ED for evaluation of shortness of breath and wheezing x24 hours. Patient states his symptoms have not improved. He also reports a dry cough and sense of chest tightness. He says he feels his seasonal allergies are triggering his asthma and reports nasal congestion and watery red eyes. Patient denies vomiting or diarrhea. Patient reports compliance with insulin which he is self-administering because his insulin pump is no longer working. PMD: Alexis Morris Past Medical History Reviewed: Historical Data, Nursing Documentation, Vital Signs Vital Signs: Last Vital Signs Temp 98.4 F 11/30/17 02:18 Pulse 95 H 11/30/17 02:18 Resp 18 11/30/17 02:18 BP 155/99 H 11/30/17 02:18 Pulse Ox 100 11/30/17 02:18 - Medical History PMH: Asthma, Diabetes (insulin dependent, type 2), HTN, Hypercholesterolemia, Migraine Denies: HIV, Chronic Kidney Disease - Surgical History Surgical History: Appendectomy (childhood) - Family History Family History: States: Hypertension (Mother) - Social History Current smoker - smoking cessation education provided: No Alcohol: None Drugs: Denies - Home Medications Home Medications: Ambulatory Orders Medication Instructions Recorded Albuterol HFA [Ventolin HFA 90 2 puff IH Q4H PRN #1 inhaler 09/14/17 mcg/actuation (8 g)] Insulin Human NPH [Humulin N] 14 units SC HS #1 vial 09/14/17 Insulin Human Regular [HumuLIN R] 8 units SC ACBD #1 vial 09/14/17 Lisinopril [Zestril] 40 mg PO DAILY #30 tab 09/14/17 Simvastatin 10 mg PO DAILY #30 tablet 09/14/17 Fluticasone Propionate [Flonase] 1 spr AMBAR QAM #1 bottle 11/30/17 Olopatadine 0.1% Opht [Patanol 5 1 drop OP QAM #1 bottle 11/30/17 Ml] - Allergies Allergies/Adverse Reactions: Allergies Allergy/AdvReac Type Severity Reaction Status Date / Time No Known Allergies Allergy Verified 07/29/16 17:58 Review of Systems ROS Statement: Except As Marked, All Systems Reviewed And Found Negative Eyes: Positive for: Redness ENT: Positive for: Nose Congestion Cardiovascular: Positive for: Other (chest tightness) Respiratory: Positive for: Cough, Shortness of Breath, Wheezing. Negative for: Sputum Gastrointestinal: Negative for: Vomiting, Diarrhea Physical Exam - Reviewed Nursing Documentation Reviewed: Yes Vital Signs Reviewed: Yes - Physical Exam Appears: Positive for: Non-toxic, In Acute Distress (mild respiratory distress) Head Exam: Positive for: ATRAUMATIC, NORMAL INSPECTION, NORMOCEPHALIC Skin: Positive for: Normal Color, Warm, Dry. Negative for: Rash Eye Exam: Positive for: EOMI, Normal appearance, PERRL ENT: Positive for: Normal ENT Inspection Neck: Positive for: Normal, Painless ROM, Supple Cardiovascular/Chest: Positive for: Regular Rate, Rhythm. Negative for: Murmur Respiratory: Positive for: Decreased Breath Sounds, Wheezing (diffuse expiratory wheezing), Respiratory Distress (mild) Gastrointestinal/Abdominal: Positive for: Normal Exam, Soft. Negative for: Tenderness Back: Positive for: Normal Inspection. Negative for: L CVA Tenderness, R CVA Tenderness, Vertebral Tenderness Extremity: Positive for: Normal ROM. Negative for: Pedal Edema, Deformity Neurologic/Psych: Positive for: Alert, Oriented. Negative for: Motor/Sensory Deficits - Laboratory Results Result Diagrams: 11/30/17 00:17 11/30/17 00:17 - ECG O2 Sat by Pulse Oximetry: 98 (RA) Pulse Ox Interpretation: Normal - Critical Care Total Time (In Min): 30 Medical Decision Making Medical Decision Makin:56 Initial Impression: 26 y/o male with acute exacerbation of asthma in setting of seasonal allergies Plan: --EKG --CMP --CBC --Glucose, POC --Duoneb 9ml INH --Magnesium Sulfate 2gm in 50ml IV --Heplock insertion --Accucheck --Peak flow --Reevaluation Will attempt to avoid giving Solu-Medrol as patient is diabetic. 02:01 Labs reviewed grace no clinically significant abnormalities Upon reevaluation, patient reports improvement of symptoms and is stable for discharge. Dx Asthma Exacerbation, Seasonal Allergies RX Patanol, Flonase Scribe Attestation: Documented by Onesimo Barnes, acting as a scribe for Dwayne Lock MD. Provider Scribe Attestation: All medical record entries made by the Scribe were at my direction and personally dictated by me. I have reviewed the chart and agree that the record accurately reflects my personal performance of the history, physical exam, medical decision making, and the department course for this patient. I have also personally directed, reviewed, and agree with the discharge instructions and disposition. Disposition - Clinical Impression Clinical Impression: Asthma exacerbation, Seasonal allergies - Patient ED Disposition Is Patient to be Admitted: No Counseled Patient/Family Regarding: Studies Performed, Diagnosis, Need For Followup, Rx Given - Disposition Referrals: Alexis Morris MD [Primary Care Provider] - Disposition: Routine/Home Disposition Time: 02:01 Condition: STABLE Prescriptions: Fluticasone Propionate [Flonase] 1 spr AMBAR QAM #1 bottle Olopatadine 0.1% Opht [Patanol 5 Ml] 1 drop OP QAM #1 bottle Instructions: Asthma in Adults, Seasonal Allergies (DC) Forms: [employer] (Yakut)
[2017-11-30 00:50] LABS: ALB/GLOB RATIO 1.3 (1.0-2.1); ALBUMIN 4.2 g/dL (3.5-5.0); ALT/SGPT 36 U/L (21-72); AST/SGOT 28 U/L (17-59); BLOOD UREA NITROGEN 27 mg/dl (9-20); CALCIUM 9.1 mg/dL (8.4-10.2); GFR AFRICAN-AMERICAN > 60; GFR NON-AFRICAN AMERICAN > 60
[2017-11-30 00:52] LABS: BASO # 0.1 K/uL (0.0-0.2); BASO % 0.7 % (0.0-2.0); EOS # 0.3 K/uL (0.0-0.7); EOS % 2.5 % (0.0-4.0); HEMOGLOBIN 14.8 g/dL (12.0-18.0); LYMPH # 1.7 K/uL (1.0-4.3); LYMPH % 14.1 % (20.0-40.0); MEAN CELL VOLUME 81.5 fl (80.0-94.0); MEAN CORPUSCULAR HEMOGLOBIN 26.8 pg (27.0-31.0); MEAN CORPUSCULAR HGB CONC 32.9 g/dL (33.0-37.0); MONO # 1.3 K/uL (0.0-0.8); MONO % 10.2 % (0.0-10.0); NEUT % 72.5 % (50.0-75.0); NRBC % 0.1 % (0.0-0.0); RBC 5.54 Mil/uL (4.40-5.90); RED CELL DISTRIBUTION WIDTH 12.9 % (11.5-14.5); WHITE BLOOD COUNT 12.4 K/uL (4.8-10.8)
[2017-11-30 02:23] VITALS: BP 155/99; PULSE 95; TEMP 98.4
[2017-11-30 05:50] VITALS: O2SAT 98
--- NOTE | 2017-11-30 08:38 | CARD ---
APPROVED REPORT EKG Measurement Heart [id number] <Conclusion> Normal sinus rhythm with sinus arrhythmia Normal ECG
== END 2017-11-30 02:23 | disposition home or self-care (01) ==
LOC: H.ER 23:24
DX: J45.901 Unspecified asthma with (acute) exacerbation (principal); J30.2 Other seasonal allergic rhinitis; E10.9 Type 1 diabetes mellitus without complications; E78.00 Pure hypercholesterolemia, unspecified; I10 Essential (primary) hypertension; Z79.4 Long term (current) use of insulin

== ENCOUNTER 2018-10-01 03:31 | Emergency (ER) | payer SELFPAY ==
[2018-10-01] MEDS ORDERED: Sodium Chloride 0.9% 2,000 ML IV STA (04:34)
[2018-10-01 05:08] LABS: VENOUS BLOOD GAS BASE EXCESS 3.6 mmol/L (0.0-2.0); VENOUS BLOOD GAS PCO2 65 mmHg (40-60); VENOUS BLOOD GAS PO2 24 mm/Hg (30-55)
[2018-10-01 05:19] LABS: BASO # 0.1 K/uL (0.0-0.2); BASO % 0.9 % (0.0-2.0); EOS # 0.1 K/uL (0.0-0.7); EOS % 1.2 % (0.0-4.0); HEMOGLOBIN 14.8 g/dL (12.0-18.0); LYMPH # 2.4 K/uL (1.0-4.3); LYMPH % 29.1 % (20.0-40.0); MEAN CELL VOLUME 81.7 fl (80.0-94.0); MEAN CORPUSCULAR HEMOGLOBIN 27.4 pg (27.0-31.0); MEAN CORPUSCULAR HGB CONC 33.5 g/dL (33.0-37.0); MEAN PLATELET VOLUME 10.4 fl (7.2-11.7); MONO # 0.9 K/uL (0.0-0.8); MONO % 11.1 % (0.0-10.0); NEUT # 4.8 K/uL (1.8-7.0); NEUT % 57.7 % (50.0-75.0); NRBC % 0.2 % (0.0-0.0); RBC 5.4 Mil/uL (4.40-5.90); RED CELL DISTRIBUTION WIDTH 12.7 % (11.5-14.5); WHITE BLOOD COUNT 8.3 K/uL (4.8-10.8)
[2018-10-01 05:30] LABS: ALB/GLOB RATIO 1.5 (1.0-2.1); ALBUMIN 4.2 g/dL (3.5-5.0); ALT/SGPT 23 U/L (21-72); AST/SGOT 18 U/L (17-59); BLOOD UREA NITROGEN 20 mg/dl (9-20); CALCIUM 9.3 mg/dL (8.4-10.2); GFR NON-AFRICAN AMERICAN > 60
[2018-10-01] MEDS ORDERED: Metoprolol 1 mg/ml Inj IVP STA (06:00)
[2018-10-01] MEDS ORDERED: Metoprolol 1 mg/ml Inj ONE (06:04)
[2018-10-01] MEDS ORDERED: Insulin Regular 100 units/ml ONE (06:04)
--- NOTE | 2018-10-01 06:05 | ED PDOC ---
Hyperglycemia/Hypoglycemia Time Seen by Provider: 10/01/18 04:23 Chief Complaint (Nursing): High Blood Sugar Chief Complaint (Provider): High Blood Sugar History Per: Patient History/Exam Limitations: no limitations Onset/Duration Of Symptoms: Other (a few weeks) Associated Infectious Symptoms: denies: Cough, Diarrhea, Other (Chest pain, fevers, shortness of breath or abdominal pain) : The patient does not have any of the infectious symptoms listed except for those marked. Additional Complaint(s): 27 years old male with a history of insulin dependent diabetes and hypertension presents to ER for evaluation of cramping feeling in his hands and states he knew his blood sugar is elevated. Patient reports because of insurance issues, he ran out of medications for the past few week. He states he has poor diet and drinks a lot of soda and uses cannabis. Patient denies abdominal pain, diarrhea, chest pain, fever and shortness of breath. PMD: Alexis Morris Past Medical History Reviewed: Historical Data, Nursing Documentation, Vital Signs Vital Signs: Last Vital Signs Temp 98.0 F 10/01/18 03:58 Pulse 78 10/01/18 03:58 Resp 16 10/01/18 03:58 BP 166/104 H 10/01/18 03:58 Pulse Ox 97 10/01/18 03:58 - Medical History PMH: Asthma, Diabetes (insulin dependent, type 2), HTN, Hypercholesterolemia, Migraine Denies: HIV, Chronic Kidney Disease - Surgical History Surgical History: Appendectomy (childhood) - Family History Family History: States: Hypertension (Mother) - Social History Drugs: Cannabis - Home Medications Home Medications: Ambulatory Orders Medication Instructions Recorded Albuterol HFA [Ventolin HFA 90 2 puff IH Q4H PRN #1 inhaler 09/14/17 mcg/actuation (8 g)] Insulin Human NPH [Humulin N] 14 units SC HS #1 vial 09/14/17 Insulin Human Regular [HumuLIN R] 8 units SC ACBD #1 vial 09/14/17 Lisinopril [Zestril] 40 mg PO DAILY #30 tab 09/14/17 Simvastatin 10 mg PO DAILY #30 tablet 09/14/17 Fluticasone Propionate [Flonase] 1 spr AMABR QAM #1 bottle 11/30/17 Olopatadine 0.1% Opht [Patanol 5 1 drop OP QAM #1 bottle 11/30/17 Ml] - Allergies Allergies/Adverse Reactions: Allergies Allergy/AdvReac Type Severity Reaction Status Date / Time No Known Allergies Allergy Verified 07/29/16 17:58 Review of Systems ROS Statement: Except As Marked, All Systems Reviewed And Found Negative Constitutional: Negative for: Fever Cardiovascular: Negative for: Chest Pain Respiratory: Negative for: Shortness of Breath Gastrointestinal: Negative for: Abdominal Pain, Diarrhea Musculoskeletal: Positive for: Hand Pain (Cramping feeling in hands) Physical Exam - Reviewed Nursing Documentation Reviewed: Yes Vital Signs Reviewed: Yes - Physical Exam Appears: Positive for: Well, No Acute Distress Head Exam: Positive for: ATRAUMATIC, NORMOCEPHALIC Skin: Positive for: Normal Color, Warm, Dry Eye Exam: Positive for: Normal appearance, EOMI, PERRL Neck: Positive for: Normal, Painless ROM, Supple Cardiovascular/Chest: Positive for: Regular Rate, Rhythm. Negative for: Murmur Respiratory: Positive for: Normal Breath Sounds. Negative for: Respiratory Distress Gastrointestinal/Abdominal: Positive for: Normal Exam, Soft. Negative for: Tenderness Back: Positive for: Normal Inspection. Negative for: L CVA Tenderness, R CVA Tenderness Extremity: Positive for: Normal ROM. Negative for: Pedal Edema, Deformity Neurological/Psych: Positive for: Awake, Alert, Oriented (x3) - Laboratory Results Result Diagrams: 10/01/18 05:13 10/01/18 05:13 Lab Results: pO2 24 mm/Hg (30-55) L 10/01/18 05:04 VBG pH 7.30 (7.32-7.43) L 10/01/18 05:04 VBG pCO2 65 mmHg (40-60) H 10/01/18 05:04 VBG HCO3 26.1 mmol/L 10/01/18 05:04 VBG Total CO2 34.0 mmol/L (22-28) H 10/01/18 05:04 VBG O2 Sat (Calc) 44.0 % (40-65) 10/01/18 05:04 VBG Base Excess 3.6 mmol/L (0.0-2.0) H 10/01/18 05:04 VBG Potassium 4.0 mmol/L (3.6-5.2) 10/01/18 05:04 Sodium 135.0 mmol/L (132-148) 10/01/18 05:04 Chloride 101.0 mmol/L (98-107) 10/01/18 05:04 Glucose 383 mg/dL (75-110) H 10/01/18 05:04 Lactate 1.2 mmol/L (0.7-2.1) 10/01/18 05:04 FiO2 21.0 % 10/01/18 05:04 Total Bilirubin 0.4 mg/dl (0.2-1.3) 10/01/18 05:13 AST 18 U/L (17-59) 10/01/18 05:13 ALT 23 U/L (21-72) 10/01/18 05:13 Alkaline Phosphatase 109 U/L (38-126) 10/01/18 05:13 Total Protein 7.0 G/DL (6.3-8.2) 10/01/18 05:13 Albumin 4.2 g/dL (3.5-5.0) 10/01/18 05:13 Globulin 2.8 gm/dL (2.2-3.9) 10/01/18 05:13 Albumin/Globulin Ratio 1.5 (1.0-2.1) 10/01/18 05:13 - ECG O2 Sat by Pulse Oximetry: 97 (RA) Pulse Ox Interpretation: Normal Medical Decision Making Medical Decision Making: Time: 433 A/P: Hyperglycemia and hypertension in setting of medications non compliance and diet non compliance --Patient appears very well appearing, well kempt, without any symptoms other than the hand cramping --Rule out DKA --Will reevaluate 630 --Patient not in DKA --Hyperglycemia resolved --Patient still with hypertension, strongly advised patient to fill scripts for his high blood pressure medication and start taking them --Patient asymptomatic at this time, very well appearing, and stable for discharge --Strongly encouraged medication compliance ScribeAttestation: Documented byAdina Roy, acting as a scribe for Pb Thompson MD. Provider ScribeAttestation: All medical record entries made by the Scribe were at my direction and personally dictated by me. I have reviewed the chart and agree that the record accurately reflects my personal performance of the history, physical exam, medical decision making, and the department course for this patient. I have also personally directed, reviewed, and agree with the discharge instructions and disposition. Disposition - Clinical Impression Clinical Impression: Hyperglycemia - Disposition Referrals: Guilherme Malave MD [Family Provider] - Disposition: Routine/Home Disposition Time: 06:30 Condition: IMPROVED Instructions: Hyperglycemia, Adult, Controlling Your Blood Pressure Through Lifestyle Forms: [facility] (Peruvian)
[2018-10-01 06:07] LABS: URINE BILIRUBIN NEGATIVE (NEGATIVE); URINE BLOOD NEGATIVE (NEGATIVE); URINE CLARITY CLEAR (Clear); URINE COLOR STRAW (YELLOW); URINE GLUCOSE (UA) >=500 mg/dL (NEGATIVE); URINE LEUKOCYTE ESTERASE NEG Leu/uL (Negative); URINE PROTEIN NEGATIVE (NEGATIVE); URINE UROBILINOGEN 0.2-1.0 mg/dL (0.2-1.0)
[2018-10-01] MEDS ORDERED: Insulin Regular 100 units/ml IV SCH (07:30)
[2018-10-01 07:32] LABS: SQUAMOUS EPITHIAL 3 /hpf (0-5); URINE AMORPHOUS SEDIMENT FEW /ul (<OCC); URINE BACTERIA FEW (<OCC)
[2018-10-01 07:44] VITALS: RESP 18
[2018-10-01 07:55] VITALS: BP 161/111; PULSE 73; TEMP 98.2
[2018-10-01 19:23] VITALS: O2SAT 97
== END 2018-10-01 07:45 | disposition home or self-care (01) ==
LOC: H.ER 03:31
DX: E11.65 Type 2 diabetes mellitus with hyperglycemia (principal); Z79.4 Long term (current) use of insulin; E78.00 Pure hypercholesterolemia, unspecified; I10 Essential (primary) hypertension; Z91.11 Patient's noncompliance with dietary regimen; Z91.19 Patient's noncompliance with other medical treatment and regimen
CPT/HCPCS: 80053; 81003; 82803; 82948; 83735; 84100; 85025; 96374; 99284; J7030

== ENCOUNTER 2018-10-25 10:57 | Emergency (ER) | payer OTHER ==
[2018-10-25 11:10] VITALS: BMI 27.3
--- NOTE | 2018-10-25 11:37 | ED PDOC ---
Hyperglycemia/Hypoglycemia Time Seen by Provider: 10/25/18 11:17 Chief Complaint (Nursing): High Blood Sugar : The patient does not have any of the infectious symptoms listed except for those marked. Past Medical History Vital Signs: Last Vital Signs Temp 98.5 F 10/25/18 11:11 Pulse 86 10/25/18 11:11 Resp 20 10/25/18 11:11 BP 185/103 H 10/25/18 11:11 Pulse Ox 99 10/25/18 11:11 - Medical History PMH: Asthma, Diabetes (insulin dependent, type 2), HTN, Hypercholesterolemia, Migraine Denies: HIV, Chronic Kidney Disease - Surgical History Surgical History: Appendectomy (childhood) - Family History Family History: States: Hypertension (Mother) - Home Medications Home Medications: Ambulatory Orders Medication Instructions Recorded Albuterol HFA [Ventolin HFA 90 2 puff IH Q4H PRN #1 inhaler 09/14/17 mcg/actuation (8 g)] Insulin Human NPH [Humulin N] 14 units SC HS #1 vial 09/14/17 Insulin Human Regular [HumuLIN R] 8 units SC ACBD #1 vial 09/14/17 Lisinopril [Zestril] 40 mg PO DAILY #30 tab 09/14/17 Simvastatin 10 mg PO DAILY #30 tablet 09/14/17 Fluticasone Propionate [Flonase] 1 spr AMBAR QAM #1 bottle 11/30/17 Olopatadine 0.1% Opht [Patanol 5 1 drop OP QAM #1 bottle 11/30/17 Ml] Insulin Regular [HumuLIN R] 8 unit IJ ONCE #1 vial 10/25/18 Insulin Glargine, Recombina 10 unit SQ ONCE #1 vial 10/25/18 [Lantus] amLODIPine [Norvasc] 5 mg PO DAILY #30 tab 10/25/18 - Allergies Allergies/Adverse Reactions: Allergies Allergy/AdvReac Type Severity Reaction Status Date / Time No Known Allergies Allergy Verified 07/29/16 17:58 - ECG O2 Sat by Pulse Oximetry: 99 Disposition - Clinical Impression Clinical Impression: Diabetes, Hypertension - Patient ED Disposition Is Patient to be Admitted: No Counseled Patient/Family Regarding: Studies Performed, Diagnosis, Need For Fol lowup, Rx Given - Disposition Referrals: [facility] [Outside] Disposition: Routine/Home Disposition Time: 11:58 Condition: FAIR Prescriptions: amLODIPine [Norvasc] 5 mg PO DAILY #30 tab Insulin Regular [HumuLIN R] 8 unit IJ ONCE #1 vial Insulin Glargine, Recombina [Lantus] 10 unit SQ ONCE #1 vial Instructions: High Blood Pressure in Adults, Type 2 Diabetes Forms: [facility] (Martiniquais)
[2018-10-25 12:01] LABS: BASO # 0.1 K/uL (0.0-0.2); BASO % 1.1 % (0.0-2.0); EOS # 0.1 K/uL (0.0-0.7); EOS % 1.7 % (0.0-4.0); HEMOGLOBIN 15.7 g/dL (12.0-18.0); LYMPH # 1.6 K/uL (1.0-4.3); LYMPH % 22.3 % (20.0-40.0); MEAN CELL VOLUME 81.5 fl (80.0-94.0); MEAN CORPUSCULAR HEMOGLOBIN 26.8 pg (27.0-31.0); MEAN CORPUSCULAR HGB CONC 32.9 g/dL (33.0-37.0); MEAN PLATELET VOLUME 10.1 fl (7.2-11.7); MONO # 0.6 K/uL (0.0-0.8); MONO % 8.5 % (0.0-10.0); NEUT # 4.7 K/uL (1.8-7.0); NEUT % 66.4 % (50.0-75.0); NRBC % 0.2 % (0.0-0.0); RBC 5.86 Mil/uL (4.40-5.90); RED CELL DISTRIBUTION WIDTH 13.2 % (11.5-14.5)
[2018-10-25 12:14] LABS: ALB/GLOB RATIO 1.6 (1.0-2.1); ALBUMIN 4.7 g/dL (3.5-5.0); ALT/SGPT 28 U/L (21-72); AST/SGOT 22 U/L (17-59); BLOOD UREA NITROGEN 14 mg/dl (9-20); CALCIUM 9.5 mg/dL (8.4-10.2); GFR NON-AFRICAN AMERICAN > 60
[2018-10-25 12:58] VITALS: BP 150/81; PULSE 77; RESP 16; TEMP 98; O2SAT 98
== END 2018-10-25 12:57 | disposition home or self-care (01) ==
LOC: H.ER 10:57
DX: E11.9 Type 2 diabetes mellitus without complications (principal); I10 Essential (primary) hypertension; Z79.4 Long term (current) use of insulin; Z79.899 Other long term (current) drug therapy; J45.909 Unspecified asthma, uncomplicated; E78.00 Pure hypercholesterolemia, unspecified

== ENCOUNTER 2018-11-16 07:08 | Emergency (ER) | payer OTHER ==
[2018-11-16 07:09] VITALS: BMI 27.3
[2018-11-16 07:11] VITALS: O2SAT 98
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
--- NOTE | 2018-11-16 08:50 | RAD ---
PROCEDURE: Radiographs of the left great toe. TECHNIQUE:: AP radiograph of the left foot, with oblique and lateral view of the left great toe. 3 view obtained. COMPARISON: None. FINDINGS: BONES: No fracture appreciated JOINTS: Normal. SOFT TISSUES: Normal. OTHER FINDINGS: None. IMPRESSION: Normal left great toe radiographs.
[2018-11-16 09:44] VITALS: BP 148/76; PULSE 76; RESP 20; TEMP 98
== END 2018-11-16 09:44 | disposition home or self-care (01) ==
LOC: H.ER 07:08
DX: M79.675 Pain in left toe(s) (principal); E11.9 Type 2 diabetes mellitus without complications; Z79.4 Long term (current) use of insulin; E78.00 Pure hypercholesterolemia, unspecified; I10 Essential (primary) hypertension

== ENCOUNTER 2018-11-21 19:07 | Emergency (ER) | payer SELFPAY ==
[2018-11-21 19:08] VITALS: BMI 27.3
[2018-11-21 20:17] VITALS: O2SAT 100
[2018-11-21] MEDS ORDERED: Sodium Chloride 0.9% 1,000 ML IV STA (21:02)
[2018-11-21 21:25] LABS: URINE BILIRUBIN NEGATIVE (NEGATIVE); URINE BLOOD NEGATIVE (NEGATIVE); URINE CLARITY CLEAR (Clear); URINE COLOR STRAW (YELLOW); URINE GLUCOSE (UA) >=500 mg/dL (NEGATIVE); URINE LEUKOCYTE ESTERASE NEG Leu/uL (Negative); URINE PROTEIN 30 mg/dL (NEGATIVE); URINE UROBILINOGEN 0.2-1.0 mg/dL (0.2-1.0)
[2018-11-21 21:29] LABS: BASO # 0.1 K/uL (0.0-0.2); BASO % 0.9 % (0.0-2.0); EOS # 0.2 K/uL (0.0-0.7); EOS % 2.2 % (0.0-4.0); HEMOGLOBIN 15.4 g/dL (12.0-18.0); LYMPH # 2.3 K/uL (1.0-4.3); LYMPH % 22.9 % (20.0-40.0); MEAN CELL VOLUME 80.4 fl (80.0-94.0); MEAN CORPUSCULAR HEMOGLOBIN 27.3 pg (27.0-31.0); MEAN PLATELET VOLUME 10.3 fl (7.2-11.7); MONO # 0.9 K/uL (0.0-0.8); MONO % 9.1 % (0.0-10.0); NEUT # 6.5 K/uL (1.8-7.0); NEUT % 64.9 % (50.0-75.0); NRBC % 0.1 % (0.0-0.0); RBC 5.63 Mil/uL (4.40-5.90); RED CELL DISTRIBUTION WIDTH 13.3 % (11.5-14.5)
[2018-11-21 21:43] LABS: ALB/GLOB RATIO 1.6 (1.0-2.1); ALBUMIN 4.6 g/dL (3.5-5.0); ALT/SGPT 45 U/L (21-72); AST/SGOT 37 U/L (17-59); BLOOD UREA NITROGEN 19 mg/dl (9-20); CALCIUM 9.2 mg/dL (8.4-10.2); GFR NON-AFRICAN AMERICAN > 60
--- NOTE | 2018-11-21 21:51 | ED PDOC ---
Hyperglycemia/Hypoglycemia Time Seen by Provider: 11/21/18 20:00 Chief Complaint (Nursing): High Blood Sugar Chief Complaint (Provider): Elevated blood sugar History Per: Patient History/Exam Limitations: no limitations Onset/Duration Of Symptoms: Days Current Symptoms Are (Timing): Still Present Causative (Exacerbating) Factor(s): Missed Taking Medication (non-compliant) : The patient does not have any of the infectious symptoms listed except for those marked. Additional Complaint(s): 27yo male with history of type 1 diabetes, hypertension, asthma, non-compliant with diabetes medication x 2 months, as well as blood pressure meds, comes with complaints of polyuria and polydypsia. Patient states he wants to get his sugar checked. Otherwise, no focal pain, dysuria, chest pain, shortness of breath. No additional complaints. Past Medical History Reviewed: Historical Data, Nursing Documentation, Vital Signs Vital Signs: Last Vital Signs Temp 98.2 F 11/21/18 20:14 Pulse 71 11/21/18 20:14 Resp 16 11/21/18 20:56 BP 174/119 H 11/21/18 20:14 Pulse Ox 100 11/21/18 20:14 Primary Care Provider: FAMILY PROVIDER,NO - Medical History PMH: Asthma, Diabetes (insulin dependent, type 2), HTN, Hypercholesterolemia, Migraine Denies: HIV, Chronic Kidney Disease - Surgical History Surgical History: Appendectomy (childhood) - Family History Family History: States: Hypertension (Mother) - Social History Current smoker - smoking cessation education provided: Yes (occasional) Alcohol: Occasional Drugs: Denies - Home Medications Home Medications: Ambulatory Orders Medication Instructions Recorded Albuterol HFA [Ventolin HFA 90 2 puff IH Q4H PRN #1 inhaler 09/14/17 mcg/actuation (8 g)] Insulin Human NPH [Humulin N] 14 units SC HS #1 vial 09/14/17 Insulin Human Regular [HumuLIN R] 8 units SC ACBD #1 vial 09/14/17 Lisinopril [Zestril] 40 mg PO DAILY #30 tab 09/14/17 Simvastatin 10 mg PO DAILY #30 tablet 09/14/17 Fluticasone Propionate [Flonase] 1 spr AMBAR QAM #1 bottle 11/30/17 Olopatadine 0.1% Opht [Patanol 5 1 drop OP QAM #1 bottle 11/30/17 Ml] Insulin Regular [HumuLIN R] 8 unit IJ ONCE #1 vial 10/25/18 Insulin Glargine, Recombina 10 unit SQ ONCE #1 vial 10/25/18 [Lantus] amLODIPine [Norvasc] 5 mg PO DAILY #30 tab 10/25/18 Ibuprofen [Motrin] 600 mg PO Q6H #20 tab 11/16/18 - Allergies Allergies/Adverse Reactions: Allergies Allergy/AdvReac Type Severity Reaction Status Date / Time No Known Allergies Allergy Verified 11/16/18 07:14 Review of Systems ROS Statement: Except As Marked, All Systems Reviewed And Found Negative Constitutional: Positive for: Other (polydypsia). Negative for: Fever, Chills Cardiovascular: Negative for: Chest Pain Respiratory: Negative for: Shortness of Breath Gastrointestinal: Negative for: Abdominal Pain Genitourinary Male: Positive for: Other (polyuria) Physical Exam - Reviewed Nursing Documentation Reviewed: Yes Vital Signs Reviewed: Yes - Physical Exam Appears: Positive for: Non-toxic, Uncomfortable Head Exam: Positive for: ATRAUMATIC, NORMAL INSPECTION, NORMOCEPHALIC Skin: Positive for: Normal Color Eye Exam: Positive for: Normal appearance ENT: Positive for: Normal ENT Inspection Neck: Positive for: Painless ROM Cardiovascular/Chest: Positive for: Regular Rate, Rhythm. Negative for: Tachycardia Respiratory: Positive for: Normal Breath Sounds. Negative for: Respiratory Distress Gastrointestinal/Abdominal: Positive for: Normal Exam, Soft Back: Positive for: Normal Inspection Extremity: Positive for: Normal ROM. Negative for: Pedal Edema Neurological/Psych: Positive for: Awake, Alert, Normal Tone, Oriented (x 3) - Laboratory Results Result Diagrams: 11/21/18 21:17 11/21/18 21:17 Lab Results: Total Bilirubin 0.5 mg/dl (0.2-1.3) 11/21/18 21:17 AST 37 U/L (17-59) 11/21/18 21:17 ALT 45 U/L (21-72) 11/21/18 21:17 Alkaline Phosphatase 113 U/L (38-126) 11/21/18 21:17 Total Protein 7.4 G/DL (6.3-8.2) 11/21/18 21: Albumin 4.6 g/dL (3.5-5.0) 11/21/18 21:17 Globulin 2.8 gm/dL (2.2-3.9) 11/21/18 21:17 Albumin/Globulin Ratio 1.6 (1.0-2.1) 11/21/18 21:17 - ECG O2 Sat by Pulse Oximetry: 100 (RA) Pulse Ox Interpretation: Normal Medical Decision Making Medical Decision Making: Impression: Polyuria and polydypsia; noncompliant with diabetes medication. bp and sugar elevated Plan: -- Labs -- IV FLuids -- URinalysis Scribe Attestation: Documented by Gayle Ayon acting as a scribe for Mahogany Tran MD. Provider Scribe Attestation: All medical record entries made by the Scribe were at my direction and personally dictated by me. I have reviewed the chart and agree that the record accurately reflects my personal performance of the history, physical exam, medical decision making, and the department course for this patient. I have also personally directed, reviewed, and agree with the discharge instructions and disposition. Time: 2334 -- Blood pressure elevated at 179/98. Labetalol 5mg/ml (4ml) given -- Labs reviewed and demonstrate anion gap is normal at 9. Patient is hyperglycemic, will re-evaluate after fluids and insulin. 2350 pt improved, ambulating around ED stating he wants to go home he states he still has prescriptions for dm meds and bp meds and will fill it(he states he can just pay for ht emeds) i instructed to follow upw ith dr crocker, who he had seen previously, however he states that dr crocker wont see him anymore due to insurance issues. pt then instructed to follow up in the clinic. pt agreeabel to plan. bp and sugar improved but i stressed the importance of medication compliance and follow up without fail. pt agreeable to plan. ++++++++++++++++++++++++++++++++++++++++++++++++++++++++++++++++++++++ Scribe Attestation: Documented by Sage Hernandez, acting as a scribe forMahogany Tran MD. Provider Scribe Attestation: All medical record entries made by the Scribe were at my direction and personally dictated by me. I have reviewed the chart and agree that the record accurately reflects my personal performance of the history, physical exam, medical decision making, and the department course for this patient. I have also personally directed, reviewed, and agree with the discharge instructions and disposition. Disposition - Clinical Impression Clinical Impression: Hypertension, Uncontrolled diabetes mellitus - Patient ED Disposition Is Patient to be Admitted: No Counseled Patient/Family Regarding: Studies Performed, Diagnosis, Need For Followup - Disposition Referrals: [facility] [Outside] [facility] [Outside] Disposition: Routine/Home Disposition Time: 23:30 Condition: IMPROVED Additional Instructions: follow up in the clinic in 1-2 days return to the ED with any worsening or concerning symptoms Instructions: High Blood Pressure in Adults, High Blood Pressure (DC), Diabetes Diet , Diabetes Type 2 (DC) Forms: [employer] (Samoan)
[2018-11-21] MEDS ORDERED: Insulin Regular 100 units/ml SC STA (22:37)
[2018-11-21] MEDS ORDERED: Insulin Regular 100 units/ml ONE (22:56)
[2018-11-21 23:00] VITALS: RESP 18
[2018-11-21] MEDS ORDERED: Labetalol 5mg/ml (4ml) IVP STA (23:23)
[2018-11-21] MEDS ORDERED: Labetalol 5mg/ml (4ml) ONE (23:55)
[2018-11-22 00:43] VITALS: BP 152/84; PULSE 61; TEMP 98.2
== END 2018-11-22 00:42 | disposition home or self-care (01) ==
LOC: H.ER 19:07
DX: I10 Essential (primary) hypertension (principal); E11.65 Type 2 diabetes mellitus with hyperglycemia; F17.200 Nicotine dependence, unspecified, uncomplicated; J45.909 Unspecified asthma, uncomplicated; Z79.4 Long term (current) use of insulin; Z91.14 Patient's other noncompliance with medication regimen; E78.00 Pure hypercholesterolemia, unspecified
CPT/HCPCS: 80053; 81003; 82948; 85025; 87086; 96372; 96374; 99285; J7030